=== PATIENT | male | born 1975 | race Two or more races ===

== ENCOUNTER 2017-01-02 11:12 | Emergency (ER) | payer SELFPAY | END 2017-01-02 12:40 | disposition left against medical advice (07) | LOC: ER 11:17 | DX: Z53.21 Procedure and treatment not carried out due to patient leaving prior to being seen by health care provider (principal) ==

== ENCOUNTER 2017-01-02 12:29 | Emergency (ER) | payer SELFPAY ==
[~2017-01-02] VITALS: Ht 177.8 cm; Wt 80.7 kg
[2017-01-02] MEDS ORDERED: TDAP [DIPH/PERTUSSIS/TET] 0.5 ML VIAL IM ONE ×2 (12:30→12:33)
--- NOTE | 2017-01-02 12:30 | NUR ---
Patient discharged to home in stable condition. Written and verbal after care instructions given. Patient verbalizes understanding of instruction.
[2017-01-02 12:55] LABS: BASOPHILS % (AUTO) 0.6 % (0.0-2.0); EOSINOPHILS # (AUTO) 0.1 /CMM (0.0-0.7); EOSINOPHILS % (AUTO) 1.7 % (0.0-6.0); HEMATOCRIT 43 % (39-51); HEMOGLOBIN 14.4 g/dL (13.5-17.5); LYMPHOCYTES # (AUTO) 1.4 /CMM (0.8-4.8); LYMPHOCYTES % (AUTO) 25.9 % (20.0-44.0); MEAN CORPUSCULAR HEMOGLOBIN 29 PG (26.0-33.0); MEAN CORPUSCULAR HGB CONC 34 g/dl (31.0-36.0); MEAN CORPUSCULAR VOLUME 87 fL (80-96); MONOCYTES # (AUTO) 0.4 /CMM (0.1-1.30); MONOCYTES % (AUTO) 6.6 % (2.0-12.0); NEUTROPHILS # (AUTO) 3.5 /CMM (1.8-8.9); NEUTROPHILS % (AUTO) 65.2 % (43.0-81.0); PLATELET COUNT (AUTO) 232 /CMM (150-450); RDW COEFFICIENT OF VARIATION 12.9 (11.5-15.0); RED BLOOD CELL COUNT(AUTO) 4.91 MIL/uL (4.5-6.0); WHITE BLOOD COUNT (AUTO) 5.3 K/uL (4.3-11.0)
[2017-01-02] MEDS ORDERED: LAMIVUDINE/ZIDOVUDINE 150-300 1 TAB TABLET PO ONE (13:00)
[2017-01-02 13:05] LABS: CALCIUM, SERUM 9.2 mg/dL (8.5-10.1); POTASSIUM 4.2 mmol/L (3.5-5.1)
[2017-01-02 13:10] LABS: ALBUMIN 4.4 g/dL (3.4-5.0); BILIRUBIN,DIRECT 0.1 mg/dL (0.0-0.2); BILIRUBIN,TOTAL 0.4 mg/dL (0.2-1.0); TOTAL PROTEIN, SERUM 8.2 g/dL (6.4-8.2)
[2017-01-02 13:16] LABS: THYROID STIMULATING HORMONE 1.146 uIU/mL (0.358-3.74)
[2017-01-02 13:21] LABS: FREE PSA 0.07 ng/mL (0.00-45); PROSTATE SPECIFIC ANTIGEN SCR 0.49 ng/mL (0.00-4.00)
[2017-01-02 13:46] VITALS: BP 141/98
[2017-01-04 21:08] LABS: *HIV-1 RNA BY PCR <20 copies/mL (.)
== END 2017-01-02 12:45 | disposition home or self-care (01) ==
LOC: ER 12:30
DX: S69.81XA Other specified injuries of right wrist, hand and finger(s), initial encounter (principal); Z23 Encounter for immunization; W46.1XXA Contact with contaminated hypodermic needle, initial encounter; Y92.89 Other specified places as the place of occurrence of the external cause; Y93.89 Activity, other specified; Y99.8 Other external cause status
CPT/HCPCS: 36415; 80048-TC; 80061-TC; 80074; 80076-TC; 82306; 84153-TC; 84154-TC; 84443-TC; 85025-TC; 87536; 90715; A4606; Z7610

== ENCOUNTER 2017-01-05 10:02 | Emergency (ER) | payer SELFPAY ==
[~2017-01-05] VITALS: Ht 177.8 cm; Wt 70.3 kg
[2017-01-05 10:04] VITALS: BP 134/91
== END 2017-01-05 10:58 | disposition home or self-care (01) ==
LOC: ER 10:03
DX: S16.1XXA Strain of muscle, fascia and tendon at neck level, initial encounter (principal); S39.012A Strain of muscle, fascia and tendon of lower back, initial encounter; S43.402A Unspecified sprain of left shoulder joint, initial encounter; R07.89 Other chest pain; V43.52XA Car driver injured in collision with other type car in traffic accident, initial encounter; Y93.89 Activity, other specified; Y92.89 Other specified places as the place of occurrence of the external cause; Y99.9 Unspecified external cause status
CPT/HCPCS: 71100; 72040; 72100; 73030; 99284; A4606; Z7610